=== PATIENT | female | born 1960 | race African-American/Black ===

== ENCOUNTER 2016-09-17 22:43 | Emergency (ER) | payer MEDICARE, MEDICAID ==
[~2016-09-17] VITALS: Ht 154.9 cm; Wt 68.0 kg
[2016-09-17 23:07] VITALS: BP 131/63
[2016-09-17] MEDS ORDERED: HYDR25CA75 PO (23:21)
[2016-09-17] MEDS ORDERED: PRED20TA PO (23:21)
[2016-09-17] MEDS ORDERED: FAMO-63 PO (23:21)
--- NOTE | 2016-09-17 23:21 | PHYS DOC ---
Past Medical History Past Medical History: Asthma, COPD Additional Past Medical Histor: headaches, sleep apnea, seasonal allergies Past Surgical History: Hysterectomy Additional Past Surgical Histo: bilat carpal tunnel, bilat rotator cuff repair , bunyonectomy L foot Alcohol Use: None Drug Use: None Adult General Chief Complaint Chief Complaint: SKIN PROBLEM [facility] HPI Patient is a 55 year old female presents emergency Department with complaint of a raised, itching rash that is been progressive in nature for approximately 3 days. She denies any changes to her personal hygiene or laundry products. She states that she's had allergic reactions to substances in the past. Patient states that person's and lives with her at taken in a stray cat. That they have not noticed any fleas or other insects, but they have been looking for them as well. She denies any facial swelling, difficulty breathing or wheezing. Review of Systems Review of Systems Constitutional: Denies fever or chills [] Eyes: Denies change in visual acuity, redness, or eye pain [] HENT: Denies nasal congestion or sore throat [] Respiratory: Denies cough or shortness of breath [] Cardiovascular: No additional information not addressed in HPI [] GI: Denies abdominal pain, nausea, vomiting, bloody stools or diarrhea [] : Denies dysuria or hematuria [] Musculoskeletal: Denies back pain or joint pain [] Integument: Denies rash or skin lesions [] Neurologic: Denies headache, focal weakness or sensory changes [] Endocrine: Denies polyuria or polydipsia [] Allergies Allergies Allergies Coded Allergies Type Severity Reaction Last Updated Verified aspirin Allergy Severe Shortness of Air 12/27/14 No Sulfa (Sulfonamide Antibiotics) Allergy Intermediate Hives 12/27/14 No erythromycin base Allergy Intermediate Hives 12/27/14 No iodine Allergy Intermediate Hives 12/27/14 No latex Allergy Intermediate Hives 12/27/14 No Physical Exam Physical Exam Constitutional: Well developed, well nourished, no acute distress, non-toxic appearance. [] HENT: Normocephalic, atraumatic, bilateral external ears normal, oropharynx moist, no oral exudates, nose normal. There is no angioedema. Eyes: PERRLA, EOMI, conjunctiva normal, no discharge. [] Neck: Normal range of motion, no tenderness, supple, no stridor. [] Cardiovascular:Heart rate regular rhythm, no murmur [] Lungs & Thorax: Bilateral breath sounds clear to auscultation Abdomen: Bowel sounds normal, soft, no tenderness, no masses, no pulsatile masses. [] Skin: Urticarial patches on patient's anterior posterior trunk, bilateral lower legs, anterior neck and face that appear to have a punctum associated with them. There is no gross erythema, fluctuant pockets or purulent drainage. There is no discernible pattern to these lesions. There is no coalescence. Back: No tenderness, no CVA tenderness. [] Extremities: No tenderness, no cyanosis, no clubbing, ROM intact, no edema. [] Neurologic: Alert and oriented X 3, normal motor function, normal sensory function, no focal deficits noted. [] Psychologic: Affect normal, judgement normal, mood normal. [] Current Patient Data Vital Signs Vital Signs Date Time Temp Pulse Resp B/P Pulse Ox O2 Delivery O2 Flow Rate FiO2 09/17/16 23:07 98.2 72 16 98 Room Air 98.2 EKG EKG [] Radiology/Procedures Radiology/Procedures [] Course & Med Decision Making Course & Med Decision Making Pertinent Labs and Imaging studies reviewed. (See chart for details) [] Dragon Disclaimer Dragon Disclaimer This electronic medical record was generated, in whole or in part, using a voice recognition dictation system. Departure Departure Impression: Primary Impression: Insect bites Disposition: 01 HOME, SELF-CARE Condition: GOOD Referrals: MALINDA HERNANDEZ MD (PCP) Patient Instructions: Insect Bite, [id number] Additional Instructions: 1. Take the medication as prescribed. 2. Review the discharge instructions provided for self-care and reasons to return to the emergency department. 3. Check the area which live, especially the carpet, cloth furniture and bedding for evidence of insects, especially police. 4. Contact your primary care doctor's office in the morning to schedule follow- up appointment for reevaluation by Sunday or . Scripts Prednisone 20 Mg Tablet2 Tab PO DAILY #5 TAB Prov:LORI CRISOSTOMO 09/17/16 Famotidine (Pepcid)20 Mg [id number] Mg PO BID #10 TAB Prov:LORI CRISOSTOMO 09/17/16 Hydroxyzine Pamoate 25 Mg Capsule1 Cap PO TID itching #21 CAP Prov:LORI CRISOSTOMO 09/17/16 Problem Qualifiers Primary Impression: Insect bites Encounter type: initial encounter Qualified Code: W57.XXXA - Bitten or stung by nonvenomous insect and other nonvenomous arthropods, initial encounter LORI CRISOSTOMO Sep 17, 2016 23:21
[2016-09-17] MEDS ORDERED: HYDROXYZINE PAMOATE 25 MG CAPSULE PO ONE (23:30)
[2016-09-17] MEDS ORDERED: PREDNISONE 20 MG TABLET PO ONE (23:30)
[2016-09-17] MEDS ORDERED: FAMOTIDINE 20 MG TABLET. PO ONE (23:30)
== END 2016-09-17 23:30 | disposition home or self-care (01) ==
LOC: ER 22:43
DX: S00.86XA Insect bite (nonvenomous) of other part of head, initial encounter (principal); S10.96XA Insect bite of unspecified part of neck, initial encounter; S80.862A Insect bite (nonvenomous), left lower leg, initial encounter; S80.861A Insect bite (nonvenomous), right lower leg, initial encounter; J44.9 Chronic obstructive pulmonary disease, unspecified; J45.909 Unspecified asthma, uncomplicated; G47.30 Sleep apnea, unspecified; Z88.1 Allergy status to other antibiotic agents; Z88.2 Allergy status to sulfonamides; Z91.041 Radiographic dye allergy status; Z91.040 Latex allergy status; Z88.6 Allergy status to analgesic agent; W57.XXXA Bitten or stung by nonvenomous insect and other nonvenomous arthropods, initial encounter; Y93.89 Activity, other specified; Y92.89 Other specified places as the place of occurrence of the external cause; Y99.8 Other external cause status
CPT/HCPCS: 99284; J7512; Q0177

== ENCOUNTER → 2016-11-28 | Outpatient (CLI) | payer OTHER, MEDICAID ==
[~2016-11-28] MED LIST: FAMO-63 PO; HYDR25CA75 PO; PRED20TA PO
--- NOTE | 2016-11-28 09:49 | RAD ---
DATE: 11/28/2016 EXAM: DIGITAL SCREEN BILAT W/CAD HISTORY: Screening study. COMPARISON: 10/12/2015 This study was interpreted with the benefit of Computerized Aided Detection (CAD). FINDINGS: Digital MLO and CC mammograms of both breasts were obtained. Comparison study is dated 10/12/2015. The breast parenchyma is heterogeneously dense which can obscure a lesion on mammography (breast density code C). No spiculated mass is seen. No malignant appearing calcification or area of architectural distortion is noted. Since the previous examination, there has been no significant interval change. IMPRESSION: BIRADS category 1, negative. There is no mammographic evidence of malignancy. BI-RADS CATEGORY: 1 NEGATIVE RECOMMENDED FOLLOW-UP: 12M 12 MONTH FOLLOW-UP PQRS compliance statement: Patient information was entered into a reminder system with a target due date 11/28/2017 for the next mammogram. Mammography is a sensitive method for finding small breast cancers, but it does not detect them all and is not a substitute for careful clinical examination. A negative mammogram does not negate a clinically suspicious finding and should not result in delay in biopsying a clinically suspicious abnormality. "Our facility is accredited by the [employer] Mammography Program."
== END | disposition home or self-care (01) ==
LOC: MAMMO 09:16
PROVIDERS: ATTEND Internal Medicine
DX: Z12.31 Encounter for screening mammogram for malignant neoplasm of breast (principal)
CPT/HCPCS: G0202; 77067

== ENCOUNTER → 2017-02-15 | Outpatient (CLI) | payer OTHER, MEDICAID ==
[~2017-02-15] MED LIST changes: +HYDR-971 PO
--- NOTE | 2017-02-15 15:39 | RAD ---
3 views the bilateral hands without comparison for worsening bilateral hand pain, history of osteoarthritis. Findings: Radiographs of the right hand are normal, save for bony fusion of the lunate and triquetrum. There is no acute osseous abnormality and minimal degenerative change. Radiographs of the left hand demonstrate post surgical changes at the base of the first and second metacarpals. The trapezium is essentially absent, with a few small dystrophic calcifications in the expected location of this bone. This could reflect postsurgical change or extensive osteolysis of this bone. Correlate clinically. There also appears to be bony fusion of the lunate and triquetrum bones on this side, and there is bony fusion of the trapezoid and capitate bones. No significant degenerative changes or acute osseous abnormalities involving the left hand. Impression: 1. Destruction or removal of the left trapezium. If there is no history of relevant surgery, possibly etiologies include osteolysis associated with infection or ischemia. Correlate clinically. There are surgical plates at the base of both the first and second metacarpals. 2. Bony fusion of the trapezoid and capitate on the left. 3. Bony fusion of the lunate and triquetrum bones bilaterally.
== END | disposition home or self-care (01) ==
LOC: RAD 10:20
PROVIDERS: ATTEND Internal Medicine Rheumatology
DX: M25.50 Pain in unspecified joint (principal)
CPT/HCPCS: 73130

== ENCOUNTER 2017-02-20 21:24 | Emergency (ER) | payer OTHER, MEDICAID ==
[~2017-02-20] VITALS: Ht 154.9 cm; Wt 68.0 kg
[~2017-02-20 21:24] MED LIST changes: -HYDR-971 PO
[2017-02-20 21:40] VITALS: BP 125/74
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
[2017-02-20] MEDS ORDERED: MORPHINE SULFATE 4 MG/ML DISP.SYRIN. IM ONE (23:00)
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
[2017-02-20] MEDS ORDERED: HYDR-971 PO (23:58)
== END 2017-02-21 00:35 | disposition home or self-care (01) ==
LOC: ER 21:24
DX: S16.1XXA Strain of muscle, fascia and tendon at neck level, initial encounter (principal); S39.012A Strain of muscle, fascia and tendon of lower back, initial encounter; S09.90XA Unspecified injury of head, initial encounter; J44.9 Chronic obstructive pulmonary disease, unspecified; E78.00 Pure hypercholesterolemia, unspecified; Z90.710 Acquired absence of both cervix and uterus; Z88.2 Allergy status to sulfonamides; Z88.6 Allergy status to analgesic agent; Z88.1 Allergy status to other antibiotic agents; Z91.041 Radiographic dye allergy status; Z91.040 Latex allergy status; V49.59XA Passenger injured in collision with other motor vehicles in traffic accident, initial encounter; Y93.89 Activity, other specified; Y99.8 Other external cause status; Y92.410 Unspecified street and highway as the place of occurrence of the external cause
CPT/HCPCS: 70450; 72125; 72131; 96372; 99284; J2270

== ENCOUNTER → 2017-05-03 | Outpatient (CLI) | payer OTHER, MEDICAID ==
[~2017-05-03] MED LIST changes: +HYDR-971 PO
--- NOTE | 2017-05-03 15:17 | RAD ---
2 views of the Chest 05/03/2017 2:00 AM Indication: SHORT OF AIR Comparison: None Findings: There is no focal consolidation or infiltrate identified. There is no effusion or pneumothorax. The cardiomediastinal silhouette and pulmonary vasculature are within normal limits. No osseous abnormality is identified. Impression: No evidence of acute cardiopulmonary process.
== END | disposition home or self-care (01) ==
LOC: RAD 14:00
PROVIDERS: ATTEND Internal Medicine Critical Care Medicine
DX: R06.02 Shortness of breath (principal)
CPT/HCPCS: 71020

== ENCOUNTER 2017-06-24 20:11 | Emergency (ER) | payer MEDICARE, MEDICAID, OTHER ==
[2017-06-24] MEDS: HYDROcodone/APAP 5/325MG 1 TAB TABLET PO (21:30)
== END 2017-06-24 22:08 | disposition home or self-care (01) ==
LOC: ER 20:11
DX: S92.422A Displaced fracture of distal phalanx of left great toe, initial encounter for closed fracture (principal); J45.909 Unspecified asthma, uncomplicated; J44.9 Chronic obstructive pulmonary disease, unspecified; E78.00 Pure hypercholesterolemia, unspecified; Z88.2 Allergy status to sulfonamides; Z88.6 Allergy status to analgesic agent; Z88.1 Allergy status to other antibiotic agents; Z91.041 Radiographic dye allergy status; Z91.040 Latex allergy status; X50.9XXA Other and unspecified overexertion or strenuous movements or postures, initial encounter; Y93.89 Activity, other specified; Y99.8 Other external cause status; Y92.89 Other specified places as the place of occurrence of the external cause
CPT/HCPCS: 73630; 99284